=== PATIENT | male | born 1995 | race Asian ===

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

== ENCOUNTER 2019-02-23 18:13 | Emergency (ER) | payer BC | END 2019-02-23 20:01 | disposition home or self-care (01) | LOC: JER 18:13 ==

== ENCOUNTER 2019-11-03 01:07 | Emergency (ER) | payer BC ==
[2019-11-03 01:45] VITALS: BP 108/63; PULSE 82; TEMP 97.2; BMI 22.8
--- NOTE | 2019-11-03 02:05 | PDOC ---
History of Present Illness - General Chief Complaint: Laceration Stated Complaint: LACERATION ON BOTTOM LIP Time Seen by Provider: 11/03/19 02:02 - History of Present Illness Initial Comments: 11/03/19 02:29 The patient is a 24 year old male with a history of Down syndrome and aggressive behavior who presents for evaluation of a lip laceration. The patient is accompanied by staff from his alf who assist in providing the history. He reports that the patient experienced a fall and sustained a laceration to the inner lower lip prompting his presentation to the ED for further evaluation. They otherwise deny headache, SOB, chest pain, nausea, vomiting, abdominal pain, or changes with urination or bowel movements. Past History - Past Medical History Allergies/Adverse Reactions: Allergies Allergy/AdvReac Type Severity Reaction Status Date / Time No Known Allergies Allergy Verified 11/03/19 01:42 Home Medications: Ambulatory Orders NK [No Known Home Medication] 11/03/19 COPD: No Psychiatric Problems: Yes (AGGRESSION , SIB, DOWN SYNDROME) - Immunization History Immunization Up to Date: Yes - Psycho Social/Smoking Cessation Hx Smoking History: Never smoked Have you smoked in the past 12 months: No Information on smoking cessation initiated: No Hx Alcohol Use: No Drug/Substance Use Hx: No Substance Use Type: None Review of Systems - Review of Systems Comments:: 11/03/19 02:42 Constitutional: No fevers, chills, fatigue, malaise HEENT: Lip laceration. No Rhinorrhea, nasal congestion, visual changes Cardiovascular: No chest pain, syncope, palpitations, lightheadedness Respiratory: No Cough, SOB, Hemoptysis, Gastrointestinal: No Abdominal pain, Nausea, Vomiting, Constipation, Diarrhea, Melena Genitourinary: No Dysuria, Frequency, Urgency, Hesitancy, Hematuria, Flank pain Musculoskeletal: No Myalgia, arthralgia Skin: No rashes, itching, bruising, pallor Neurologic: No Headache, Dizziness, Numbness, Weakness, or Tingling Psychiatric: No Hallucinations. No SI or HI *Physical Exam - Vital Signs Last Vital Signs Temp Pulse Resp BP Pulse Ox 97.2 F L 82 20 108/63 100 11/03/19 01:15 11/03/19 01:15 11/03/19 01:15 11/03/19 01:15 11/03/19 01:15 - Physical Exam 11/03/19 02:42 General Appearance: Nourished. No Apparent Distress HEENT: EOMI, PJ. 0.5cm well approximated laceration to the inner lower lip. No Pharyngeal Erythema, Tonsillar Exudate, Tonsillar Erythema Neck: No Cervical Lymphadenopathy Respiratory/Chest: Lungs Clear, Normal Breath Sounds. No Crackles, Rales, Rhonchi, Wheezing Cardiovascular: Regular Rhythm, Regular Rate. No Murmur, Gallops, Rubs Gastrointestinal/Abdominal: Normal Bowel Sounds, Soft. No Guarding, Rebound, Tenderness Musculoskeletal: No CVA Tenderness Extremity: Normal Capillary Refill Integumentary: Normal Color, Dry, Warm Neurologic: Oriented, Alert, Normal Mood/Affect, Normal Response, Medical Decision Making - Medical Decision Making 11/03/19 02:43 The patient is a 24 year old male with a history of Down syndrome and aggressive behavior who presents for evaluation of a lip laceration. Given the patient's history and physical exam, the patient's laceration does not require repair at this time. We are comfortable discharging the patient home in stable condition. Patient and accompanied staff member made aware of impression and plan, return precautions discussed including but not limited to worsening pain or symptoms, fevers, or signs of infection, chest pain, respiratory distress, inability to tolerate oral intake, dehydration, syncope, or neurologic changes. The patient is to follow up with PMD as recommended within 1 week, follow up information provided and the patient will call for an appointment. The patient is to take medications as instructed for duration of time and continue with supportive care, avoid triggers and precipitants. Patient is safe for outpatient follow-up. Discharge - Discharge Information Problems reviewed: Yes Clinical Impression/Diagnosis: Laceration of lip Qualifiers: Encounter type: initial encounter Qualified Code(s): S01.511A - Laceration without foreign body of lip, initial encounter Condition: Stable Disposition: HOME - Admission No - Follow up/Referral - Patient Discharge Instructions Patient Printed Discharge Instructions: DI for Minor Laceration Additional Instructions: 1) Please follow-up with your primary care doctor in the next 2-3 days. Please call tomorrow to schedule a follow up appointment. If you cannot follow up with your doctor within 1 week please return to the Emergency Department for any urgent issues. 2)Please keep your wound clean. It will heal naturally over time. 3) If you have any worsening of symptoms or any other concerns, please return to the ER immediately. Return if worsening symptoms including fevers, headache, vomiting, visual or hearing disturbances, abdominal pain, chest pain, shortness of breath, syncope, dehydration, inability to take things by mouth/vomiting, altered mental status, or worsening concerning symptoms. 4) Please continue taking your home medications as directed. Side effects may include upset stomach, abdominal pain, vomiting, or diarrhea. Do not drink alcohol with your medications. - Post Discharge Activity
--- NOTE | 2019-11-03 02:47 | PDOC ---
Attending Attestation - Resident Resident Name: Slava Lucero - ED Attending Attestation I have performed the following: I have examined & evaluated the patient, The case was reviewed & discussed with the resident, I agree w/resident's findings & plan, Exceptions are as noted - HPI HPI: 11/03/19 02:46 See resident HPI - Physicial Exam PE: 11/03/19 02:46 Agree with documented exam - Medical Decision Making 11/03/19 02:46 Small laceration to inner lower lip, wet juan alberto, not a gaping wound, not through and through will allow wound to close secondarily dc
== END 2019-11-03 02:46 ==
LOC: JER 01:07
DX: S01.511A Laceration without foreign body of lip, initial encounter (principal); W19.XXXA Unspecified fall, initial encounter; Y93.89 Activity, other specified; Y92.128 Other place in nursing home as the place of occurrence of the external cause; Y99.8 Other external cause status; Q90.9 Down syndrome, unspecified; F91.1 Conduct disorder, childhood-onset type
CPT/HCPCS: 99281-25